=== PATIENT | female | born 1995 ===

== ENCOUNTER 2016-11-10 14:14 | Emergency (ER) | payer MEDICAID ==
[2016-11-10 14:23] VITALS: BMI 21.9
[2016-11-10 14:26] VITALS: TEMP 98.9; O2SAT 100
[2016-11-10] MEDS ORDERED: Albuterol-Ipratrop 3 mg / 0.5 (3 ml) UD IH STA ×2 (14:56→15:33)
--- NOTE | 2016-11-10 15:00 | ED PDOC ---
Arrival/HPI - General Chief Complaint: Cough, Cold, Congestion Time Seen by Provider: 11/10/16 14:43 Historian: Patient - History of Present Illness Narrative History of Present Illness (Text): 11/10/16 14:58 21yr old female with hx of asthma presents today with cough x 3 days with subjective fevers at home. no cp or sob. pt states she has been using her asthma pump frequently over the past few days. pt is c/o mostly dry cough with occasional mucus production. c/o subjective fevers at home. denies sore throat. + sick contacts at home. no vomiting/diarrhea. no abdominal pain. no mediations taken for fever reduction. Time/Duration: Other (3 days) Symptom Onset: Gradual Symptom Course: Unchanged Quality: Other (no pain) Past Medical History - Provider Review Nursing Documentation Reviewed: Yes - Travel History Have you recently traveled outside [place] w/in the past 3 mons?: No - Infectious Disease Hx of Infectious Diseases: None - Tetanus Immunization Tetanus Immunization: Unknown - Cardiac Hx Heart Murmur: Yes - Pulmonary Hx Asthma: Yes - HEENT Hx HEENT Disorder: No - Endocrine/Metabolic Hx Endocrine Disorders: No - Hematological/Oncological Hx Anemia: Yes - Integumentary Hx Dermatological Disorder: No - Musculoskeletal/Rheumatological Hx Musculoskeletal Disorders: No - Gastrointestinal Hx Gastrointestinal Disorders: No - Genitourinary/Gynecological Hx Genitourinary Disorders: No - Psychiatric Hx Psychophysiologic Disorder: No Hx Substance Use: No - Past Surgical History Past Surgical History: No Previous - Anesthesia Hx Anesthesia: No Hx Anesthesia Reactions: No Hx Malignant Hyperthermia: No - Suicidal Assessment Feels Threatened In Home Enviroment: No Family/Social History - Physician Review Nursing Documentation Reviewed: Yes Family/Social History: Unknown Family HX Smoking Status: Never Smoked Hx Alcohol Use: Yes Hx Substance Use: No Hx Substance Use Treatment: No Allergies/Home Meds Allergies/Adverse Reactions: Allergies apple Allergy (Verified 11/10/16 14:23) RASH diphenhydramine Allergy (Verified 11/10/16 14:23) ANAPHYLAXIS kiwi Allergy (Verified 11/10/16 14:23) ANAPHYLAXIS Review of Systems - Review of Systems Constitutional: Fevers. absent: Fatigue ENT: absent: Sinus Congestion Respiratory: Cough, Wheezing. absent: SOB Cardiovascular: absent: Chest Pain, Palpitations Gastrointestinal: absent: Abdominal Pain, Nausea, Vomiting Genitourinary Female: absent: Dysuria Musculoskeletal: absent: Arthralgias Skin: absent: Rash, Pruritis Neurological: absent: Headache, Dizziness Psychiatric: absent: Anxiety, Depression, Suicidal Ideation Physical Exam Vital Signs Reviewed: Yes Vital Signs Temp Pulse Resp BP Pulse Ox 11/10/16 15:17 100 H 18 107/55 L 100 11/10/16 14:25 98.9 F 118 H 17 105/49 L 100 Temperature: Afebrile Blood Pressure: Normal Pulse: Tachycardic Respiratory Rate: Normal Appearance: Positive for: Well-Appearing, Non-Toxic, Comfortable Pain Distress: None Mental Status: Positive for: Alert and Oriented X 3 - Systems Exam Head: Present: Atraumatic Mouth: Present: Moist Mucous Membranes Neck: Present: Normal Range of Motion Respiratory/Chest: Present: Good Air Exchange, Wheezes (diffuse wheezing bilaterally). No: Clear to Auscultation, Respiratory Distress, Accessory Muscle Use, Tachypneic Cardiovascular: Present: Tachycardic. No: Murmurs Abdomen: No: Tenderness Neurological: Present: GCS=15 Skin: Present: Warm, Dry, Normal Color. No: Rashes Psychiatric: Present: Alert, Oriented x 3 Medical Decision Making ED Course and Treatment: 11/10/16 15:01 Patient is nontoxic well-appearing in no distress. pt with hx of asthma; c/o wheezing and cough. tachycardic with diffuse wheezing bilaterally. tylenol Po duoneb 2 cxr no infiltrate or effusion as read by the radiologist pt reassessment; lungs clear to auscultation bilaterally vital signs are stable. Zithromax by mouth Prednisone by mouth I advised follow up with primary care physician within the next 2 days. I advised increase fluids and return if symptoms worsen persist or if new symptoms develop. Patient verbalizes understanding of discharge instructions and need for immediate followup. IMPRESSION; cough, asthma Tylenol every 4 hours as needed for pain/fever reduction Zithromax one tablet once daily x4 days Prednisone daily 4 days Using nebulizer 3 times daily as needed Increase fluids Followup with primary care physician the next 2 days Return if symptoms worsen persist or if new symptoms develop 11/10/16 16:29 - RAD Interpretation Radiology Orders: 11/10/16 14:56 CHEST TWO VIEWS (PA/LAT) [RAD] Stat - Medication Orders Current Medication Orders: Discontinued Medications Acetaminophen (Tylenol 325mg Tab) 975 mg PO STAT STA Stop: 11/10/16 14:57 Last Admin: 11/10/16 15:14 Dose: 975 mg Albuterol/Ipratropium (Duoneb 3 Mg/0.5 Mg (3 Ml) Ud) 3 ml IH STAT STA Stop: 11/10/16 14:57 Last Admin: 11/10/16 15:13 Dose: 3 ml Albuterol/Ipratropium (Duoneb 3 Mg/0.5 Mg (3 Ml) Ud) 3 ml IH STAT STA Stop: 11/10/16 15:34 Last Admin: 11/10/16 15:54 Dose: 3 ml Disposition/Present on Arrival - Present on Arrival Any Indicators Present on Arrival: No History of DVT/PE: No History of Uncontrolled Diabetes: No Urinary Catheter: No History of Decub. Ulcer: No History Surgical Site Infection Following: None - Disposition Have Diagnosis and Disposition been Completed?: Yes Diagnosis: Cough, Asthma Disposition Time: 16:30 Patient Plan: Discharge Condition: GOOD Discharge Instructions (ExitCare): Asthma (ED), Acute Cough (ED) Additional Instructions: Tylenol every 4 hours as needed for pain/fever reduction Zithromax one tablet once daily x4 days Prednisone daily 4 days Using nebulizer 3 times daily as needed Increase fluids Followup with primary care physician the next 2 days Return if symptoms worsen persist or if new symptoms develop Prescriptions: Albuterol HFA [Ventolin HFA 90 mcg/actuation (8 g)] 2 puff IH [id number] PRN #1 inhaler PRN Reason: Cough Albuterol 0.083% [Albuterol 0.083% Inhal Arti (2.5 mg/3 ml) UD] 1 vial IH TID PRN #1 packet PRN Reason: Cough Azithromycin [Zithromax] 250 mg PO DAILY #4 tab Nebulizer [Compact Compressor Nebulizer] 1 dev XX PRN PRN #1 dev PRN Reason: Cough predniSONE [predniSONE Tab] 2 tab PO DAILY #8 tab Referrals: Chary Lam MD [Staff Provider] - Follow up with primary Forms: WORK NOTE
--- NOTE | 2016-11-10 16:24 | RAD ---
HISTORY: cough/fever COMPARISON: 05/07/2016 TECHNIQUE: Chest PA and lateral FINDINGS: LUNGS: No active pulmonary disease. PLEURA: No significant pleural effusion identified. No pneumothorax apparent. CARDIOVASCULAR: Normal. OSSEOUS STRUCTURES: No significant abnormalities. VISUALIZED UPPER ABDOMEN: Normal. OTHER FINDINGS: None. IMPRESSION: No active disease.
[2016-11-10 16:56] VITALS: PULSE 93; RESP 16
[2016-11-10 16:58] VITALS: BP 110/70
== END 2016-11-10 17:02 | disposition home or self-care (01) ==
LOC: ED 14:14
DX: J45.909 Unspecified asthma, uncomplicated (principal); R05 Cough

== ENCOUNTER 2016-11-18 17:22 | Emergency (ER) | payer MEDICAID ==
[2016-11-18 17:37] VITALS: BMI 21.4
[2016-11-18] MEDS ORDERED: Sodium Chloride 0.9% 1,000 ML IV STA (18:00)
--- NOTE | 2016-11-18 18:24 | ED PDOC ---
Arrival/HPI - General Historian: Patient - General Chief Complaint: Eye Problem Time Seen by Provider: 11/18/16 17:35 - History of Present Illness Narrative History of Present Illness (Text): 11/18/16 18:20 Patient reports 1 day h/o of fever with generalized weakness, body aches, cough , and nausea. Patient states that her daughter was sick recently with an ear infection. Otherwise: (+) sore throat, (-) URI symptoms, (-) SOB, (-) chest pain, (-) N/V/D, (-) abdominal pain, (-) flank pain, (-) urinary symptoms, (-) recent travel. Of note, patient is also complaining of 2 day history of redness , irritation and discharge to the right eye. Otherwise: (-) visual changes, (- ) other injury, (+) contact lens, (-) eye pain. PMD [place] (Rachel Aleman PA-C) Past Medical History - Provider Review Nursing Documentation Reviewed: Yes - Infectious Disease Hx of Infectious Diseases: None - Tetanus Immunization Tetanus Immunization: Unknown - Cardiac Hx Heart Murmur: Yes - Pulmonary Hx Asthma: Yes - Neurological Hx Neurological Disorder: No - HEENT Hx HEENT Disorder: No - Renal Hx Renal Disorder: No - Endocrine/Metabolic Hx Endocrine Disorders: No - Hematological/Oncological Hx Anemia: Yes - Integumentary Hx Dermatological Disorder: No - Musculoskeletal/Rheumatological Hx Musculoskeletal Disorders: Yes Hx Arthritis: Yes (scoliosis) - Gastrointestinal Hx Gastrointestinal Disorders: No - Genitourinary/Gynecological Hx Genitourinary Disorders: No - Psychiatric Hx Psychophysiologic Disorder: No Hx Substance Use: No - Past Surgical History Past Surgical History: No Previous - Anesthesia Hx Anesthesia: No Hx Anesthesia Reactions: No Hx Malignant Hyperthermia: No - Suicidal Assessment Feels Threatened In Home Enviroment: No Family/Social History - Physician Review Nursing Documentation Reviewed: Yes Family/Social History: No Known Family HX Smoking Status: Never Smoked Hx Alcohol Use: Yes Hx Substance Use: No Hx Substance Use Treatment: No Allergies/Home Meds Allergies/Adverse Reactions: Allergies apple Allergy (Verified 11/18/16 17:37) RASH diphenhydramine Allergy (Verified 11/18/16 17:37) ANAPHYLAXIS kiwi Allergy (Verified 11/18/16 17:37) ANAPHYLAXIS Review of Systems - Review of Systems Constitutional: Normal, Fatigue, Fevers. absent: Weight Change Eyes: Normal, Other (R eye redness). absent: Vision Changes, Photophobia, Eye Pain ENT: Normal. absent: Hearing Changes, Tinnitus, Rhinorrhea, Epistaxis Respiratory: Normal, Cough. absent: SOB, Sputum Cardiovascular: Normal. absent: Chest Pain, Palpitations, Edema Musculoskeletal: Normal, Arthralgias. absent: Back Pain, Neck Pain Skin: Normal. absent: Rash, Pruritis, Skin Lesions Physical Exam - Physical Exam Narrative Physical Exam (Text): 11/18/16 18:23 GENERAL APPEARANCE: Patient is awake, alert, oriented x 3, in no acute distress. SKIN: Warm, dry; (-) cyanosis, (-) rash. (-) Decubitus Ulcer EYES: (+) R eye is injected, (-) discharge, (-) conjunctival pallor, (-) scleral icterus, (-) conjunctival hemorrhage. ENMT: Mucous membranes dry. TMs: (-) erythema. Airway patent: (-) stridor. Pharynx: (+) mild erythema, (-) exudate. NECK: (-) tenderness, (-) stiffness, (-) meningismus, (+) nontender anterior lymphadenopathy. CHEST AND RESPIRATORY: (-) accessory muscle use. Lungs: (-) rales, (-) rhonchi, (-) wheezes, (-) rub; breath sounds decreased to the L side. HEART AND CARDIOVASCULAR: (-) irregularity; (-) murmur, (-) gallop, (-) rub. ABDOMEN AND GI: Soft; (-) tenderness, (-) guarding; (-) organomegaly; (-) mass ; (-) CVA tenderness. EXTREMITIES: (-) deformity; (-) cellulitis, (-) lymphangitis; (-) subungual hemorrhage; (-) edema. NEURO AND PSYCH: Mental status as above; (-) focal findings. (Ash NUÑEZ,Rachel Greer) Vital Signs Temp Pulse Resp BP Pulse Ox 11/18/16 22:30 98.3 F 91 H 16 98 11/18/16 22:28 98.3 F 91 H 16 98 11/18/16 21:03 100 H 17 96/55 L 97 11/18/16 19:51 100 H 19 100/60 98 11/18/16 17:38 100.9 F H 144 H 16 105/68 96 11/18/16 17:35 100.9 F H 144 H 18 105/68 96 Medical Decision Making - Lab Interpretations I have reviewed the lab results: Yes (WBC 12.7, UA shows (+) UTI, rapid strep (- )) ED Course and Treatment: 11/18/16 18:24 21 yo F presents with 1 day h/o fever, body aches, generalized weakness, cough. Patient is presents with redness and discharge to the right eye. Based on exam, likely viral illness to rule out pneumonia, pharyngitis. Plan: -- Labs -- IV fluids -- Urinalysis -- Rapid strep -- CXR -- Tylenol / Zofran / Toradol -- Reassess and disposition 11/18/16 21:28 On reevaluation, the patient reports significant improvement in her symptoms. Patient denies any headache, chills, fever, chest pain, shortness of breath, abdominal pain or vomiting. On exam, patient is laying in bed comfortably in no acute distress. VS: T 98 P91 R 16 O2sat 98%RA Lab results reviewed and discussed with the patient in great detail. Chest x- ray shows no acute findings, rapid strep was negative, UA shows infection. Based on history, exam and diagnostic results plan will be for outpatient follow -up. Prescription provided. Patient states she fully agrees with and understands discharge instructions. States that she agrees with the plan and disposition. Verbalized and repeated discharge instructions and plan. I have given the patient opportunity to ask any additional questions. Follow up with primary care physician in 1-2 days without fail. Advised to take medication as prescribed. Return to the emergency room at any time for any new or worsening symptoms. (Ash NUÑEZ,Rachel Greer) - Lab Interpretations Lab Results: 11/18/16 18:22 11/18/16 18:22 Lab Results 11/18/16 21:25: Urine Color Yellow, Urine Appearance Clear, Urine pH 6.5, Ur Specific [place] 1.020, Urine Protein Trace H, Urine Glucose (UA) Negative, Urine Ketones Trace H, Urine Blood Negative, Urine Nitrate Negative, Urine Bilirubin Negative, Urine Urobilinogen 1.0 H, Ur Leukocyte Esterase Small H, Urine RBC 0 - 2, Urine WBC 5 - 10, Ur Epithelial Cells 10 - 12, Urine Bacteria Few 11/18/16 19:04: Grp A Beta Strep Ag Negative 11/18/16 18:22: Sodium 135, Potassium 4.7, Chloride 99, Carbon Dioxide 23, Anion Gap 18, BUN 10, Creatinine 0.8, Est GFR ( Amer) > 60, Est GFR (Non- Af Amer) > 60, Random Glucose 88, Calcium 9.9, Total Bilirubin 2.9 H, AST 37, ALT 32, Alkaline Phosphatase 59, Total Protein 8.5 H, Albumin 4.9 H, Globulin 3.7, Albumin/Globulin Ratio 1.3 11/18/16 18:22: WBC 12.7 H D, RBC 4.70, Hgb 14.3, Hct 41.1, MCV 87.4, MCH 30.4, MCHC 34.8, RDW 12.7, Plt Count 234, MPV 9.2, Gran % 81.8 H, Lymph % (Auto) 8.9 L , [place] % (Auto) 9.0 H, Eos % (Auto) 0.1 L, Baso % (Auto) 0.2, Gran # 10.38 H, Lymph # 1.1 L, [place] # 1.1 H, Eos # 0.0, Baso # 0.02 - RAD Interpretation Narrative RAD Interpretations (Text): 11/18/16 23:27 CXR : NAD, as read by PA (Rachel Aleman PA-C) Radiology Orders: 11/18/16 18:00 CHEST TWO VIEWS (PA/LAT) [RAD] Stat - Medication Orders Current Medication Orders: Discontinued Medications Acetaminophen (Tylenol 325mg Tab) 975 mg PO STAT STA Stop: 11/18/16 18:01 Last Admin: 11/18/16 19:03 Dose: 975 mg Sodium Chloride (Sodium Chloride 0.9%) 1,000 mls @ 1,000 mls/hr IV .Q1H STA Stop: 11/18/16 18:59 Last Admin: 11/18/16 19:03 Dose: 1,000 mls/hr Ketorolac Tromethamine (Toradol) 30 mg IVP STAT STA Stop: 11/18/16 18:01 Last Admin: 11/18/16 19:03 Dose: 30 mg Ondansetron HCl (Zofran Inj) 4 mg IVP STAT STA Stop: 11/18/16 18:01 Last Admin: 11/18/16 19:03 Dose: 4 mg - PA / EXERCISE INSTRUCT / Resident Statement / has reviewed & agrees with the documentation as recorded. Disposition/Present on Arrival - Present on Arrival Any Indicators Present on Arrival: No History of DVT/PE: No History of Uncontrolled Diabetes: No Urinary Catheter: No History of Decub. Ulcer: No History Surgical Site Infection Following: None - Disposition Have Diagnosis and Disposition been Completed?: Yes Disposition Time: 22:00 Patient Plan: Discharge - Disposition Diagnosis: Fever, Viral illness, UTI (urinary tract infection) Disposition: HOME/ ROUTINE Condition: STABLE Discharge Instructions (ExitCare): Urinary Tract Infection in Women (ED), Fever in Adults (ED), Viral Syndrome (ED) Print Language: KHMER Additional Instructions: Thank you for letting us take care of you today. You were treated for fever, viral illness, UTI. The emergency medical care you received today was directed at your acute symptoms. If you were prescribed any medication, please fill it and take as directed. It may take several days for your symptoms to resolve. Return to the Emergency Department if your symptoms worsen, do not improve, or if you have any other problems. Please contact your doctor in 2 days for re-evaluation and follow up. Bring any paperwork you were given at discharge with you along with any medications you are taking to your follow up visit. Our treatment cannot replace ongoing medical care by a primary care provider (PCP) outside of the emergency department. Thank you for allowing the [facility] team to be part of your care today. Prescriptions: Ibuprofen [Motrin] 600 mg PO Q6H #20 tab Nitrofurantoin Macrocrystals [Macrobid] 100 mg PO BID #20 cap [facility] - Follow up with primary Forms: WORK NOTE
[2016-11-18 18:33] LABS: ADD MANUAL DIFF? NO
[2016-11-18 18:42] LABS: BASO # 0.02 K/mm3 (0.0-2.0); BASO % 0.2 % (0.0-3.0); EOS % 0.1 % (1.5-5.0); GRAN # 10.38 (1.4-6.5); GRAN % 81.8 % (50.0-68.0); HEMATOCRIT 41.1 % (36.0-48.0); LYMPH # 1.1 (1.2-3.4); LYMPH % 8.9 % (22.0-35.0); MEAN CELL VOLUME 87.4 fL (80.0-105.0); MEAN CORPUSCULAR HEMOGLOBIN 30.4 pg (25.0-35.0); MEAN CORPUSCULAR HGB CONC 34.8 g/dl (31.0-37.0); MEAN PLATELET VOLUME 9.2 fl (7.0-11.0); MONO # 1.1 (0.1-0.6); PLATELET COUNT 234 10^3/uL (120.0-450.0); RED CELL DISTRIBUTION WIDTH 12.7 % (11.5-14.5); WHITE BLOOD COUNT 12.7 10^3/ul (4.5-11.0)
[2016-11-18 19:04] LABS: ALB/GLOB RATIO 1.3 (1.1-1.8); ALKALINE PHOSPHATASE 59 U/L (38-133); ALT/SGPT 32 U/L (7-56); AST/SGOT 37 U/L (15-39); BILIRUBIN,TOTAL 2.9 mg/dL (0.2-1.3); BLOOD UREA NITROGEN 10 mg/dL (7-21); CALCIUM 9.9 mg/dL (8.4-10.5); CARBON DIOXIDE 23 mmol/L (21-33); CHLORIDE 99 mmol/L (98-107); GFR AFRICAN-AMERICAN > 60; GLUCOSE,RANDOM 88 mg/dL (70-110); POTASSIUM 4.7 mmol/L (3.6-5.0); SODIUM 135 mmol/L (132-148); TOTAL PROTEIN 8.5 g/dL (5.8-8.3)
[2016-11-18 21:03] VITALS: BP 96/55
[2016-11-18 21:35] LABS: PH,URINE 6.5 (4.7-8.0); URINE BILIRUBIN NEGATIVE (NEGATIVE); URINE BLOOD NEGATIVE (NEGATIVE); URINE GLUCOSE (UA) NEGATIVE (NEGATIVE); URINE KETONE TRACE mg/dL (NEGATIVE); URINE LEUKOCYTE ESTERASE SMALL Leu/uL (NEGATIVE); URINE PROTEIN TRACE mg/dL (<30 mg/dL)
[2016-11-18 21:44] LABS: URINE APPEARANCE CLEAR (CLEAR); URINE COLOR YELLOW (YELLOW)
[2016-11-18 22:06] LABS: URINE RBC 0 - 2 /hpf (0-2)
[2016-11-18 22:07] LABS: URINE BACTERIA FEW (NEG)
[2016-11-18 22:29] VITALS: PULSE 91; RESP 16; TEMP 98.3; O2SAT 98
--- NOTE | 2016-11-19 08:03 | RAD ---
HISTORY: fever COMPARISON: No prior. TECHNIQUE: Chest PA and lateral FINDINGS: LUNGS: No active pulmonary disease. PLEURA: No significant pleural effusion identified. No pneumothorax apparent. CARDIOVASCULAR: Normal. OSSEOUS STRUCTURES: Localized dextroscoliosis mid -lower thoracic spine. Recommend dedicated scoliosis series. . VISUALIZED UPPER ABDOMEN: Normal. OTHER FINDINGS: None. IMPRESSION: No active disease. Localized dextroscoliosis mid -lower thoracic spine. Recommend dedicated scoliosis series. .
== END 2016-11-18 22:31 | disposition home or self-care (01) ==
LOC: ED 17:22
DX: N39.0 Urinary tract infection, site not specified (principal); B34.9 Viral infection, unspecified; R50.9 Fever, unspecified
CPT/HCPCS: 71020; 80053; 81001; 85025; 87040; 87070; 87086; 87430; 96374; 96375; 99284; J1885; J2405; J7040

== ENCOUNTER 2016-11-21 10:08 | Emergency (ER) | payer MEDICAID ==
[2016-11-21 10:09] VITALS: BMI 21.4
--- NOTE | 2016-11-21 10:32 | ED PDOC ---
Arrival/HPI - General Chief Complaint: Eye Problem Time Seen by Provider: 11/21/16 10:15 Historian: Patient - History of Present Illness Narrative History of Present Illness (Text): 11/21/16 10:28 21-year-old female presents today with bilateral eye redness and pruritus. Patient states she was recently seen in the emergency room and told the physician that she had pinkeye but was not given a prescription. Patient presents today with a one-week history of bilateral eye redness and pruritus. Patient states it started in the right eye and now has spread to the left. Patient denies blurred vision or pain. Denies fevers or chills. Patient states she is recently getting over an upper respiratory tract infection. No other complaints Time/Duration: 1 week Symptom Onset: Gradual Symptom Course: Worsening Quality: Other (no pain) Past Medical History - Provider Review Nursing Documentation Reviewed: Yes - Travel History Have you recently traveled outside [place] w/in the past 3 mons?: No - Infectious Disease Hx of Infectious Diseases: None - Tetanus Immunization Tetanus Immunization: Unknown - Cardiac Hx Heart Murmur: Yes - Pulmonary Hx Asthma: Yes - Neurological Hx Neurological Disorder: No - HEENT Hx HEENT Disorder: No - Renal Hx Renal Disorder: No - Endocrine/Metabolic Hx Endocrine Disorders: No - Hematological/Oncological Hx Anemia: Yes - Integumentary Hx Dermatological Disorder: No - Musculoskeletal/Rheumatological Hx Musculoskeletal Disorders: Yes Hx Arthritis: Yes (scoliosis) - Gastrointestinal Hx Gastrointestinal Disorders: No - Genitourinary/Gynecological Hx Genitourinary Disorders: No - Psychiatric Hx Psychophysiologic Disorder: No Hx Substance Use: No - Past Surgical History Past Surgical History: No Previous - Anesthesia Hx Anesthesia: No Hx Anesthesia Reactions: No Hx Malignant Hyperthermia: No - Suicidal Assessment Feels Threatened In Home Enviroment: No Family/Social History - Physician Review Nursing Documentation Reviewed: Yes Family/Social History: Unknown Family HX Smoking Status: Never Smoked Hx Alcohol Use: Yes Hx Substance Use: No Hx Substance Use Treatment: No Allergies/Home Meds Allergies/Adverse Reactions: Allergies apple Allergy (Verified 11/21/16 10:35) RASH diphenhydramine Allergy (Verified 11/21/16 10:35) ANAPHYLAXIS kiwi Allergy (Verified 11/21/16 10:35) ANAPHYLAXIS Review of Systems - Review of Systems Constitutional: absent: Fatigue, Fevers Eyes: Other (bilateral red eyes). absent: Vision Changes, Photophobia, Eye Pain Respiratory: absent: SOB, Cough Cardiovascular: absent: Chest Pain, Palpitations Gastrointestinal: absent: Abdominal Pain, Constipation, Diarrhea, Nausea Genitourinary Female: absent: Dysuria Musculoskeletal: absent: Arthralgias Skin: absent: Rash, Pruritis Neurological: absent: Headache, Dizziness Psychiatric: absent: Anxiety, Depression Physical Exam Vital Signs Reviewed: Yes Temperature: Afebrile Blood Pressure: Normal Pulse: Regular Respiratory Rate: Normal Appearance: Positive for: Well-Appearing, Non-Toxic, Comfortable Pain Distress: None Mental Status: Positive for: Alert and Oriented X 3 - Systems Exam Head: Present: Atraumatic Pupils: Present: PERRL Extroacular Muscles: Present: EOMI Conjunctiva: Present: Injected (bilateral conjunctival injection) Ears: Present: Normal, NORMAL TM Mouth: Present: Moist Mucous Membranes Pharnyx: Present: Normal Neck: Present: Normal Range of Motion Respiratory/Chest: Present: Clear to Auscultation, Good Air Exchange. No: Respiratory Distress, Accessory Muscle Use Cardiovascular: Present: Regular Rate and Rhythm, Normal S1, S2. No: Murmurs Skin: Present: Warm, Dry, Normal Color. No: Rashes Psychiatric: Present: Alert, Oriented x 3 Medical Decision Making ED Course and Treatment: 11/21/16 10:31 Patient is nontoxic well appearing in no distress Visual acuity within normal limits bilateral Conjunctival injection noted, PERRLA, extraocular muscles intact Advised follow-up with the academic director within the next few days. Advised taking antibiotics as prescribed. Advised immediate return if symptoms worsen persist or new concerning symptoms develop Patient verbalizes understanding of discharge instructions and need for immediate followup. all aspects of this case were discussed the attending of record. Impression: Conjunctivitis Tobrex: 2 drops in both eyes 4 times daily Followup with the eye doctor within the next 2 days Return immediately if symptoms worsen persist or if new symptoms develop; blurry vision, worsening eye pain, worsening redness or any other concerning symptoms develop. Follow up with her primary care physician within the next 2 days Disposition/Present on Arrival - Present on Arrival Any Indicators Present on Arrival: No History of DVT/PE: No History of Uncontrolled Diabetes: No Urinary Catheter: No History Surgical Site Infection Following: None - Disposition Have Diagnosis and Disposition been Completed?: Yes Diagnosis: Conjunctivitis Disposition: HOME/ ROUTINE Disposition Time: 10:32 Patient Plan: Discharge Patient Problems: Current Active Problems Problem Status Onset Conjunctivitis Acute Condition: GOOD Discharge Instructions (ExitCare): Conjunctivitis (ED) Additional Instructions: Tobrex: 2 drops in both eyes 4 times daily Followup with the eye doctor within the next 2 days Return immediately if symptoms worsen persist or if new symptoms develop; blurry vision, worsening eye pain, worsening redness or any other concerning symptoms develop. Follow up with her primary care physician within the next 2 days Prescriptions: Tobramycin 0.3% [Tobramycin 5 Ml] 2 drop OU QID #1 bottle Referrals: Paul Doss MD [Staff Provider] - Follow up with primary Hugo Robin MD [Staff Provider] - Follow up with primary Forms: WORK NOTE
[2016-11-21 10:36] VITALS: BP 94/61; PULSE 86; RESP 20; TEMP 99.6; O2SAT 98
== END 2016-11-21 10:47 | disposition home or self-care (01) ==
LOC: ED 10:08
DX: H10.9 Unspecified conjunctivitis (principal)

== ENCOUNTER 2018-04-19 09:22 | Emergency (ER) | payer MEDICAID, OTHER ==
[2018-04-19 09:23] VITALS: BMI 22.3
[2018-04-19 09:50] VITALS: BP 104/72; PULSE 99; RESP 17; TEMP 98.7; O2SAT 99
--- NOTE | 2018-04-19 10:09 | ED PDOC ---
Arrival/HPI - General Chief Complaint: Allergic Reaction Time Seen by Provider: 04/19/18 10:01 Historian: Patient - History of Present Illness Narrative History of Present Illness (Text): 04/19/18 10:06 23yr old female presents today with itchy, swollen right red eye after peeling potatoes pt states she has allergy to potatoes and it usually causes rash. pt states she applied allergy eye drops and went to sleep thinking that it would improve in the morning. pt states the eye only gets red when she rubs it. pt denies fever/chills. no cp or sob. no n/v/d/c. pt denies feeling of throat closing. pt denies pain to eye. pt denies blurred vision.no dizziness or weakness. pt states she is 7 weeks and currently on vitamins. pt states she is allergic to benadryl. pt denies abd pain. no other complaints. Past Medical History - Provider Review Nursing Documentation Reviewed: Yes - Travel History Have you recently traveled outside [place] w/in the past 3 mons?: No - Infectious Disease Hx of Infectious Diseases: None - Tetanus Immunization Tetanus Immunization: Unknown - Cardiac Hx Cardiac Disorders: Yes Hx Heart Murmur: Yes - Pulmonary Hx Respiratory Disorders: Yes Hx Asthma: Yes - Neurological Hx Neurological Disorder: No - HEENT Hx HEENT Disorder: No - Renal Hx Renal Disorder: No - Endocrine/Metabolic Hx Endocrine Disorders: No - Hematological/Oncological Hx Blood Disorders: Yes Hx Anemia: Yes - Integumentary Hx Dermatological Disorder: No - Musculoskeletal/Rheumatological Hx Musculoskeletal Disorders: Yes Hx Arthritis: Yes (scoliosis) - Gastrointestinal Hx Gastrointestinal Disorders: No - Genitourinary/Gynecological Hx Genitourinary Disorders: No - Psychiatric Hx Psychophysiologic Disorder: No Hx Substance Use: No - Past Surgical History Past Surgical History: No Previous - Anesthesia Hx Anesthesia: No Hx Anesthesia Reactions: No Hx Malignant Hyperthermia: No - Suicidal Assessment Feels Threatened In Home Enviroment: No Family/Social History - Physician Review Nursing Documentation Reviewed: Yes Family/Social History: Unknown Family HX Smoking Status: Unknown If Ever Smoked Hx Alcohol Use: No Hx Substance Use: No Hx Substance Use Treatment: No Allergies/Home Meds Allergies/Adverse Reactions: Allergies apple Allergy (Verified 04/19/18 09:49) RASH diphenhydramine Allergy (Verified 04/19/18 09:49) ANAPHYLAXIS kiwi Allergy (Verified 04/19/18 09:49) ANAPHYLAXIS potato skin Allergy (Uncoded 04/19/18 09:49) URTICARIA Review of Systems - Review of Systems Constitutional: absent: Fatigue, Fevers Eyes: Other (right eye swelling.). absent: Vision Changes, Photophobia, Eye Pain ENT: absent: Sore Throat, Rhinorrhea, Sinus Congestion Respiratory: absent: SOB, Cough Cardiovascular: absent: Chest Pain, Palpitations Gastrointestinal: absent: Abdominal Pain, Constipation, Diarrhea, Nausea, Vomiting Musculoskeletal: absent: Arthralgias, Back Pain Skin: Rash, Pruritis Neurological: absent: Headache, Dizziness Psychiatric: absent: Anxiety, Depression Physical Exam Vital Signs Reviewed: Yes Vital Signs Temp Pulse Resp BP Pulse Ox 04/19/18 09:49 98.7 F 99 H 17 104/72 99 Temperature: Afebrile Blood Pressure: Normal Pulse: Regular Respiratory Rate: Normal Appearance: Positive for: Well-Appearing, Non-Toxic, Comfortable Pain Distress: None Mental Status: Positive for: Alert and Oriented X 3 - Systems Exam Head: Present: Atraumatic, Swelling (+ mild edema noted to the inferior aspect of the orbit; no warmth. no erythema; slightly hyperpigmented. + minimal upper eyelid edema. ). No: Tenderness Pupils: Present: PERRL Extroacular Muscles: Present: EOMI Conjunctiva: Present: Normal Ears: Present: Normal, NORMAL TM Mouth: Present: Moist Mucous Membranes Pharnyx: Present: Normal Nose (External): Present: Atraumatic Nose (Internal): Present: Clear Mucous. No: Septal Hematoma Neck: Present: Normal Range of Motion, Trachea Midline Respiratory/Chest: Present: Clear to Auscultation, Good Air Exchange. No: Respiratory Distress, Accessory Muscle Use Cardiovascular: Present: Regular Rate and Rhythm Neurological: Present: GCS=15 Skin: Present: Warm, Dry, Normal Color Psychiatric: Present: Alert, Oriented x 3 Medical Decision Making ED Course and Treatment: 04/19/18 10:25 Patient is nontoxic well-appearing in no distress with stable vital signs no angioedema. Lungs are clear to auscultation bilaterally there is no wheezing noted. The airway is patent pt was seen and evaluated by dr. saunders. Patient reassessment: After medications patient is feeling much better the lungs are clear to auscultation bilaterally the airway is patent the patient is speaking in full sentences. I advised taking medications as prescribed and f/u with PMD and ice skating teacher. Advised patient to follow up with primary care physician within the next 2 days and return if symptoms worsen persist or if new symptoms develop Patient verbalizes understanding of discharge instructions and need for immediate followup. Impression: allergic reaction zyrtec; 1 tablet daily. Follow up with the ice skating teacher/cyber intel planner Follow up with the primary care physician tomorrow. Follow up with the eye doctor within the next 2 days. Return if symptoms worsen persist or if new symptoms develop: Shortness of breath, feeling of throat closing, difficulty speaking or any other concerning symptoms develop 04/19/18 10:27 Disposition/Present on Arrival - Present on Arrival Any Indicators Present on Arrival: No History of DVT/PE: No History of Uncontrolled Diabetes: No Urinary Catheter: No History of Decub. Ulcer: No History Surgical Site Infection Following: None - Disposition Have Diagnosis and Disposition been Completed?: Yes Diagnosis: Allergic reaction Disposition: HOME/ ROUTINE Disposition Time: 10:27 Patient Plan: Discharge Condition: GOOD Discharge Instructions (ExitCare): Skin Rash (DC) Additional Instructions: zyrtec; 1 tablet daily. Follow up with the ice skating teacher/cyber intel planner Follow up with the primary care physician tomorrow. Follow up with the eye doctor within the next 2 days. Return if symptoms worsen persist or if new symptoms develop: Shortness of breath, feeling of throat closing, difficulty speaking or any other concerning symptoms develop Prescriptions: Cetirizine HCl [Zyrtec] 10 mg PO DAILY #20 capsule Referrals: Burke Nina MD [Staff Provider] - Follow up with primary Nasima Farley MD [Medical Doctor] - Follow up with primary [facility] [Outside] - Follow up with primary Forms: [facility] (Telugu), WORK NOTE
== END 2018-04-19 10:41 | disposition home or self-care (01) ==
LOC: ED 09:22
DX: T78.49XA Other allergy, initial encounter (principal); X58.XXXA Exposure to other specified factors, initial encounter; O26.891 Other specified pregnancy related conditions, first trimester; Z3A.01 Less than 8 weeks gestation of pregnancy

== ENCOUNTER 2018-06-05 09:57 | Emergency (ER) | payer OTHER ==
[2018-06-05 09:58] VITALS: BMI 22.3
--- NOTE | 2018-06-05 10:39 | ED PDOC ---
Arrival/HPI - General Chief Complaint: ENT Problem Time Seen by Provider: 06/05/18 09:59 Historian: Patient - History of Present Illness Narrative History of Present Illness (Text): 06/05/18 10:31 23-year-old female presents today with a one-week history of occasional cough and nasal congestion and a 2 day history of sore throat. She denies fevers or chills at home. Denies body aches or fatigue. Patient states she is 3 months . Patient states her child is sick at home with sore throat. Patient states she has not taken any medications at home for pain because she likes to avoid medications during . Patient states she woke up today and decided to come into the emergency room because the pain in the throat was worsening. Patient states she feels mucus dripping into the back of the throat. She denies chest pain or shortness of breath no abdominal pain. No other complaints. Time/Duration: 1 week Symptom Onset: Gradual Symptom Course: Worsening Quality: Burning Severity Level: Mild Past Medical History - Provider Review Nursing Documentation Reviewed: Yes - Travel History Have you recently traveled outside [place] w/in the past 3 mons?: No - Infectious Disease Hx of Infectious Diseases: None - Tetanus Immunization Tetanus Immunization: Unknown - Cardiac Hx Cardiac Disorders: Yes Hx Heart Murmur: Yes - Pulmonary Hx Respiratory Disorders: Yes Hx Asthma: Yes - Neurological Hx Neurological Disorder: No - HEENT Hx HEENT Disorder: No - Renal Hx Renal Disorder: No - Endocrine/Metabolic Hx Endocrine Disorders: No - Hematological/Oncological Hx Blood Disorders: Yes Hx Anemia: Yes - Integumentary Hx Dermatological Disorder: No - Musculoskeletal/Rheumatological Hx Musculoskeletal Disorders: Yes Hx Arthritis: Yes (scoliosis) - Gastrointestinal Hx Gastrointestinal Disorders: No - Genitourinary/Gynecological Hx Genitourinary Disorders: No - Psychiatric Hx Psychophysiologic Disorder: No Hx Substance Use: No - Past Surgical History Past Surgical History: No Previous - Anesthesia Hx Anesthesia: No Hx Anesthesia Reactions: No Hx Malignant Hyperthermia: No - Suicidal Assessment Feels Threatened In Home Enviroment: No Family/Social History - Physician Review Nursing Documentation Reviewed: Yes Family/Social History: Unknown Family HX Smoking Status: Unknown If Ever Smoked Hx Alcohol Use: No Hx Substance Use: No Hx Substance Use Treatment: No Allergies/Home Meds Allergies/Adverse Reactions: Allergies apple Allergy (Verified 06/05/18 10:05) RASH diphenhydramine Allergy (Verified 06/05/18 10:05) ANAPHYLAXIS kiwi Allergy (Verified 06/05/18 10:05) ANAPHYLAXIS potato skin Allergy (Uncoded 06/05/18 10:05) URTICARIA Home Medications: Home Meds Medication Instructions Recorded Confirmed Pnv No.95/Ferrous Fum/Folic AC 1 tab PO DAILY 06/05/18 06/05/18 [ Vitamins Tablet] Review of Systems - Review of Systems Constitutional: absent: Fatigue, Fevers ENT: Sore Throat (2 days), Sinus Congestion (1 week) Respiratory: Cough (intermittent for 1 week) Cardiovascular: absent: Chest Pain, Palpitations Gastrointestinal: absent: Abdominal Pain, Nausea, Vomiting Genitourinary Female: absent: Dysuria, Frequency Musculoskeletal: absent: Arthralgias, Back Pain, Neck Pain Skin: absent: Rash, Pruritis Neurological: absent: Headache, Dizziness Psychiatric: absent: Anxiety, Depression Physical Exam Vital Signs Reviewed: Yes Vital Signs Temp Pulse Resp BP Pulse Ox 06/05/18 10:04 98.5 F 99 H 18 104/72 98 Temperature: Afebrile Blood Pressure: Normal Pulse: Regular Respiratory Rate: Normal Appearance: Positive for: Well-Appearing, Non-Toxic, Comfortable Pain Distress: None Mental Status: Positive for: Alert and Oriented X 3 - Systems Exam Head: Present: Atraumatic Ears: Present: Normal, NORMAL TM Mouth: Present: Moist Mucous Membranes, Normal Lips, Normal Tounge. No: Drooling, Trismus Pharnyx: Present: Normal. No: ERYTHEMA, EXUDATE, TONSILS ENLARGED, Peritonsilar Swelling, Uvular Deviation, Muffled/Hoarse Voice, Soft Palate/Uvular Edema Nose (External): Present: Atraumatic Nose (Internal): Present: Clear Mucous Neck: Present: Normal Range of Motion, Trachea Midline Respiratory/Chest: Present: Clear to Auscultation, Good Air Exchange. No: Respiratory Distress, Accessory Muscle Use Cardiovascular: Present: Regular Rate and Rhythm, Normal S1, S2. No: Murmurs Upper Extremity: Present: Normal ROM Lower Extremity: Present: Normal ROM Neurological: Present: GCS=15, Speech Normal Skin: Present: Warm, Dry, Normal Color. No: Rashes Psychiatric: Present: Alert, Oriented x 3 Medical Decision Making ED Course and Treatment: 06/05/18 10:33 Patient is nontoxic well appearing in no distress. Vital signs are stable. rapid strep: negative Patient reassessment: non toxic well appearing; no distress. tolerating medications/fluids/solids. afebrile. resting comfortably in er. Rapid strep negative. will send throat culture. will d/c home to f/u with ENT and PMD. I advised follow up with primary care physician within the next 2 days, advised to increase fluids take tylenol every 4 hours as needed for pain. advised return if symptoms worsen persist or if new symptoms develop Patient verbalizes understanding of discharge instructions and need for immediate followup. IMPRESSION; pharyngitis Tylenol every 4 hours as needed for pain/fever reduction Increase fluids Follow up primary care physician within the next 2 days Follow up with the ENT specialist within the next 2 days. Saltwater gargles, throat lozenges Return if symptoms worsen persist or if new symptoms develop Reassessment Condition: Re-examined, Improved - Medication Orders Current Medication Orders: Discontinued Medications Acetaminophen (Tylenol 325mg Tab) 975 mg PO STAT STA Stop: 06/05/18 10:21 Disposition/Present on Arrival - Present on Arrival Any Indicators Present on Arrival: No History of DVT/PE: No History of Uncontrolled Diabetes: No Urinary Catheter: No History of Decub. Ulcer: No History Surgical Site Infection Following: None - Disposition Have Diagnosis and Disposition been Completed?: Yes Diagnosis: Sore throat Disposition Time: 11:15 Patient Plan: Discharge Condition: GOOD Additional Instructions: Tylenol every 4 hours as needed for pain/fever reduction Increase fluids Follow up primary care physician within the next 2 days Follow up with the ENT specialist within the next 2 days. Saltwater gargles, throat lozenges Return if symptoms worsen persist or if new symptoms develop Referrals: Nasima Farley MD [Medical Doctor] - Follow up with primary Hubert Ching DO [Staff Provider] - Follow up with primary [facility] [Outside] - Follow up with primary Forms: [facility] (Khmer), WORK NOTE
[2018-06-05 10:40] VITALS: TEMP 98
[2018-06-05 11:48] VITALS: BP 108/68; PULSE 72; RESP 16; O2SAT 100
== END 2018-06-05 11:48 | disposition home or self-care (01) ==
LOC: ED 09:57
DX: J02.9 Acute pharyngitis, unspecified (principal)